=== PATIENT | female | born 1990 | race Caucasian/White ===

== ENCOUNTER 2021-08-25 11:50 | Inpatient (IN) | payer OTHER ==
[~2021-08-25] VITALS: Ht 162.6 cm; Wt 91.2 kg
--- NOTE | 2021-08-25 14:19 | NUR ---
covid swab done to both nares at 1310
--- NOTE | 2021-08-25 20:03 | PR ---
[facility] [address] [facility] [place], [place] [address] Signed Progress Notes IP Datetime Report Generated by CPN: 08/25/2021 20:03 PROGRESS NOTES: [id number] Impression: Normal Progression of Labor Plan: Continue Present Management; Anticipate Vaginal Delivery VITAL SIGNS: [id number] Vital Signs: Reviewed; Within Normal Limits EXAM: [id number] Dilatation: 8.0 Effacement: 80 Station: -2 MEMBRANES: [id number] Comments: Comfortable wlith Epidural. Making progress, but may need Piitocin, since progress seems to be slowing. Will recheck in about 1 hour. FETUS A: [id number] FHR Baseline: 150 Variability: Moderate 6-25bpm Accelerations: 15X15 Presentation: Vertex FETUS B: [id number] Signing Physician: Wilberto Gonzalez MD Copies: ~ *Electronically Signed* 08/25/212002 WILBERTO GONZALEZ MD PATIENT NAME: DIANA WISE PROGRESS NOTE DATE OF : 86 PHYSICIAN: WILBERTO GONZALEZ MD RPT #: [id number] REPORT IS CONFIDENTIAL AND NOT TO BE RELEASED WITHOUT AUTHORIZATION
--- NOTE | 2021-08-25 21:01 | PR ---
[facility] [address] [facility] [place], [place] [address] Signed Progress Notes IP Datetime Report Generated by CPN: 08/25/2021 21:01 PROGRESS NOTES: [id number] Impression: Normal Progression of Labor Other Impressions: Slow Progress Procedures: Intrauterine Pressure Catheter Plan: Augmentation VITAL SIGNS: [id number] Vital Signs: Reviewed; Within Normal Limits EXAM: [id number] Dilatation: 8.0 Effacement: 90 Station: -1 MEMBRANES: [id number] Membranes Status: Ruptured Comments: Slow progress, patient comfortable with Epidural. Will start Pitocin augmentation. FETUS A: [id number] FHR Baseline: 150 Variability: Moderate 6-25bpm Accelerations: 15X15 Presentation: Vertex FETUS B: [id number] Signing Physician: Wilberto Gonzalez MD Copies: ~ *Electronically Signed* 08/25/212100 WILBERTO GONZALEZ MD PATIENT NAME: DIANA WISE PROGRESS NOTE DATE OF : 86 PHYSICIAN: WILBERTO GONZALEZ MD RPT #: [id number] REPORT IS CONFIDENTIAL AND NOT TO BE RELEASED WITHOUT AUTHORIZATION
--- NOTE | 2021-08-25 22:35 | PR ---
[facility] [address] [facility] [place], [place] [address] Signed Progress Notes IP Datetime Report Generated by CPN: 08/25/2021 22:35 PROGRESS NOTES: [id number] Impression: Normal Progression of Labor Other Impressions: Slow Progress Procedures: Intrauterine Pressure Catheter Plan: Anticipate Vaginal Delivery VITAL SIGNS: [id number] Vital Signs: Reviewed; Within Normal Limits EXAM: [id number] Dilatation: 10.0 Effacement: 100 Station: 0 MEMBRANES: [id number] Membranes Status: Ruptured Comments: Comfortable with Epidural. Will have patient start pushing. FETUS A: [id number] FHR Baseline: 150 Variability: Moderate 6-25bpm Accelerations: 15X15 Presentation: Vertex FETUS B: [id number] Signing Physician: Wilberto Gonzalez MD Copies: ~ *Electronically Signed* 08/25/21 2234 WILBERTO GONZALEZ MD PATIENT NAME: DIANA WISE PROGRESS NOTE DATE OF : 86 PHYSICIAN: WILBERTO GONZALEZ MD RPT #: [id number] REPORT IS CONFIDENTIAL AND NOT TO BE RELEASED WITHOUT AUTHORIZATION
--- NOTE | 2021-08-26 10:51 | PR ---
[facility] [place] [facility] [address] [facility] [place] [address] Signed PP Progress Notes Datetime Report Generated by CPN: 08/26/2021 10:51 SUBJECTIVE: [id number] Pain: Within Normal Limits Nausea/Vomiting: Denies Vital Signs: [id number] Vital Signs: Reviewed; Within Normal Limits Notable Details: PP Hgb/Hct = 11.6/35.2 Abdomen/Uterus: Normal Lochia: Normal Extremities: Normal IMPRESSION/PLAN/PROCEDURES: [id number] Impression: Normal Progression Plan: Continue Present Management Procedures: None Progress Notes: Doing well without complaint. Signing Physician: Wilberto Gonzalez MD Copies: ~ *Electronically Signed* 08/26/21 1051 WILBERTO GONZALEZ MD PATIENT NAME: DIANA WISE PROGRESS NOTE DATE OF : [birth year] PHYSICIAN: WILBERTO GONZALEZ MD RPT #: [id number] REPORT IS CONFIDENTIAL AND NOT TO BE RELEASED WITHOUT AUTHORIZATION
--- NOTE | 2021-08-27 10:53 | PR ---
[facility] [address] [facility] [place] [address] Signed PP Progress Notes Datetime Report Generated by CPN: 08/27/2021 10:53 SUBJECTIVE: [id number] Pain: Within Normal Limits Nausea/Vomiting: Denies Vital Signs: [id number] Vital Signs: Reviewed; Within Normal Limits Notable Details: PP Hgb/Hct = 11.6/35.2 Abdomen/Uterus: Normal Lochia: Normal Extremities: Normal IMPRESSION/PLAN/PROCEDURES: [id number] Impression: Normal Progression Plan: Discharge Procedures: None Progress Notes: Doing well, without complaint, ready to go home. Signing Physician: Wilberto Gonzalez MD Copies: ~ *Electronically Signed* 08/27/21 1053 WILBERTO GONZALEZ MD PATIENT NAME: DIANA WISE PROGRESS NOTE DATE OF : [birth year] PHYSICIAN: WILBERTO GONZALEZ MD RPT #: [id number] REPORT IS CONFIDENTIAL AND NOT TO BE RELEASED WITHOUT AUTHORIZATION
== END 2021-08-27 11:06 | disposition home or self-care (01) | DRG 807 ==
LOC: FBC 11:50
PROVIDERS: ADMIT General Practice; ATTEND General Practice
PROC: 10E0XZZ Delivery of Products of Conception, External Approach (ICD-10-PCS; principal; 2021-08-25)
PROC: 0KQM0ZZ Repair Perineum Muscle, Open Approach (ICD-10-PCS; 2021-08-25)
PROC: 10907ZC Drainage of Amniotic Fluid, Therapeutic from Products of Conception, Via Natural or Artificial Opening (ICD-10-PCS; 2021-08-25)
PROC: 3E0234Z Introduction of Serum, Toxoid and Vaccine into Muscle, Percutaneous Approach (ICD-10-PCS; 2021-08-25)
PROC: 3E0R3BZ Introduction of Anesthetic Agent into Spinal Canal, Percutaneous Approach (ICD-10-PCS; 2021-08-25)
PROC: 00HU33Z Insertion of Infusion Device into Spinal Canal, Percutaneous Approach (ICD-10-PCS; 2021-08-25)
PROC: 3E033VJ Introduction of Other Hormone into Peripheral Vein, Percutaneous Approach (ICD-10-PCS; 2021-08-25)
DX: O99.52 Diseases of the respiratory system complicating childbirth (principal); Z37.0 Single live birth; O70.1 Second degree perineal laceration during delivery; Z3A.39 39 weeks gestation of pregnancy; Z20.822 Contact with and (suspected) exposure to COVID-19; O26.893 Other specified pregnancy related conditions, third trimester; Z67.21 Type B blood, Rh negative; Z88.2 Allergy status to sulfonamides; Z91.030 Bee allergy status; Z88.8 Allergy status to other drugs, medicaments and biological substances; J45.20 Mild intermittent asthma, uncomplicated; Z98.890 Other specified postprocedural states
CPT/HCPCS: 01960; 83030; 85027; 86850; 86900; 86901; A9270; C9803; J2590; J2790; J2795; J3010; U0003

== ENCOUNTER 2022-11-01 07:55 | Day surgery (SDC) | payer OTHER ==
[~2022-11-01] VITALS: Ht 152.4 cm; Wt 78.2 kg
--- NOTE | ~2022-11-01 | OR ---
[facility] [address] [place], [place] [address] Draft DATE OF OPERATION: 11/01/2022 SURGEON: Stefani Wheat DO PREOPERATIVE DIAGNOSIS: Intra-abdominal IUD. POSTOPERATIVE DIAGNOSIS: Intra-abdominal IUD. PROCEDURE PERFORMED: Laparoscopic retrieval of malpositioned/intra-abdominal IUD. WATER PURIFIER: Nicci Spann DO ANESTHESIA: General. ESTIMATED BLOOD LOSS: 5 mL. SPECIMEN: None. FINDINGS: Normal external genitalia with normal vagina and cervix. On laparoscopy, normal pelvis with IUD resting on top of the left omentum removed without difficulty. A small dimple at the apex of the uterus consistent with perforation site. Otherwise, normal pelvis with normal uterus, tubes, and ovaries. The patient does have a history of endometriosis in the past, but careful evaluation of all peritoneal surfaces of the pelvis demonstrates no evidence of residual endometriosis or other pelvic pathology. COMPLICATIONS: None. INDICATIONS: Ms. Xiong is a very pleasant 32-year-old G2, P2 female, who presented for IUD insertion in August 2022. At six week IUD check, IUD strings were noted to be missing. Ultrasound demonstrated IUD was not seen in the uterine cavity and pelvic PATIENT NAME: DIANA XIONG OPERATIVE REPORT DATE OF : 86 REPORT #: [id number] PHYSICIAN: STEFANI WHEAT (MADDI) PCP: PAUL SAAB MD REPORT IS CONFIDENTIAL AND NOT TO BE RELEASED WITHOUT AUTHORIZATION [facility] [address] [place], [place] [address] Draft x-ray demonstrates intra-abdominal Mirena IUD pelvic. The patient was consented for laparoscopic retrieval of intra-abdominal IUD. Risks, benefits, and alternatives were discussed in detail with the patient. The patient understands and wished to proceed with the procedure. TECHNIQUE: The patient was taken to the operating room where a time-out was performed to confirm correct patient and correct procedure. General anesthesia was adequately established. The patient was prepped and draped in the dorsal lithotomy position with her feet in Yellofin stirrups. ICPs were on and running and no preoperative antibiotics or heparin were indicated. A weighted speculum was placed in the vagina and the anterior lip of the cervix was grasped with Allis clamp. The cervix was gently dilated using Hegar dilators and [place] uterine manipulator was placed. A Cline catheter was inserted. Attention was turned to the abdomen. The base of the umbilicus was infiltrated with 0.25% Marcaine with epinephrine and a 5 mm stab incision was made using an 11 blade. A 5 mm port was placed under direct visualization without complication. Pneumoperitoneum was easily established without complication and survey of the abdomen and pelvis was performed. The IUD was noted to be resting on top of the left omentum consistent with findings and x-ray. A 5 mm scar was noted in the midline just above the pubic symphysis. This area was infiltrated with 0.25% Marcaine with epinephrine. An incision was made through the prior scar and a 5 mm assist port was placed without difficulty under direct visualization. The IUD was grasped with [place] graspers and removed without difficulty. The remainder of the abdomen and pelvis was examined. Close inspection of the peritoneal surfaces of the pelvis demonstrated no evidence of residual endometriosis as the patient does have a history of endometriosis in the past. A small dimple on the left apical portion of the IUD was noted consistent with perforation site. Pneumoperitoneum was reduced. Trocars were removed and trocar sites were repaired using 4-0 Vicryl with excellent cosmesis and hemostasis. The Allis clamp and [place] uterine manipulator as well as the Cline catheter were removed. The patient was then taken to PACU in good and stable condition. Sponge, needle, and instrument counts were correct x2 at the end of the procedure. Dr. Spann was present and participated in all portions of the procedure. Stefani Wheat DO JDW/MODL /[id number] PATIENT NAME: DIANA XIONG OPERATIVE REPORT DATE OF : 86 REPORT #: [id number] PHYSICIAN: STEFANI WHEAT DO (JD) PCP: PAUL SAAB MD REPORT IS CONFIDENTIAL AND NOT TO BE RELEASED WITHOUT AUTHORIZATION [facility] [address] [place] [address] [place] [address] Draft Copies: ~ PATIENT NAME: DIANA XIONG OPERATIVE REPORT DATE OF : [birth year] REPORT #: [id number] PHYSICIAN: STEFANI WHEAT (MADDI) PCP: PAUL SAAB MD REPORT IS CONFIDENTIAL AND NOT TO BE RELEASED WITHOUT AUTHORIZATION
[~2022-11-01 07:55] MED LIST: ALL DAY ALLERGY10 MG PO; PROVENTIL HFA6.7 GM INH; PULMICORT FLEX90 MCG INH; SUDAFED 12 HOU120 MG PO
--- NOTE | 2022-11-01 10:00 | NUR ---
LE 1000 CHECKED ON PATIENT UPDATED. PATIENT HAS NO QUESTIONS OR FUTHER NEEDS.
--- NOTE | 2022-11-01 11:00 | NUR ---
LE 1100 PATIENT UPDATED ON WAIT. GIVEN WARM BLANKET. NO QUESTIONS OR FUTHER NEEDS AT THIS TIME. AT BEDSIDE.
--- NOTE | 2022-11-01 11:43 | NUR ---
CHECKED ON PATIENT AND UPDATE GIVEN. NO OTHER NEEDS AT THIS TIME.
--- NOTE | 2022-11-01 13:29 | NUR ---
11/01/22 1329 Sherrill Krause 1327- PT ARRIVES TO PACU NONAROUSABLE TO STIMULI WITH AN OPA IN PLACE. RESP EVEN AND UNLABORED. OXYGEN SAT HIGH 90'S TO 100% ON 8L VIA MASK.
--- NOTE | 2022-11-01 14:17 | NUR ---
5266-PATIENT BACK TO ROOM FROM PACU ON RA. RECEIVED REPORT FROM [facility]. PATIENT IS AWAKE. RESP EVEN AND UNLABORED. RATES PAIN 4/10 AND THIS IS TOLERABLE FOR HER. DENIES NAUSEA. 2 LAP SITES WITH A SMALL AMOUNT OF DRAINAGE. PATIENT EATING JELLO AND DRINKING WATER. CALL LIGHT WITHIN REACH. AT BEDSIDE. NO OTHER NEEDS AT THIS TIME.
--- NOTE | 2022-11-01 14:34 | NUR ---
LE 1423 PATIENT COMPLAINING OF 5/10 PAIN. PAIN MEDICINE GIVEN PER EMAR.
--- NOTE | 2022-11-01 15:02 | NUR ---
LE 1500 PATIENT ABLE TO AMBULATE TO THE RESTROOM. PATIENT TOLERATED AMBULATION WELL. VOIDED. CLEAR AND YELLOW URINE. CALL LIGHT WITHIN REACH NO FUTHER NEEDS. NO QUESTIONS AT THIS TIME.
--- NOTE | 2022-11-01 15:26 | NUR ---
1520 PATIENT HAS MET DISCHARGE CRITERIA. PATIENT PAIN IS A 2/10 AND TOLERABLE. PATIENT DENIES BEING NAUSEATED. SURGICAL SITE IS CLEAN, DRY AND INTACT. PATIENT IV D/C'D WNL. PATIENT GIVEN DISCHARGE INSTRUCTIONS AND UNDERSTOOD. NO QUESTIONS AT THIS TIME. PATIENT WAS WHEELED OUT OF FACILTIY TO PRIVATE AUTO. NO FUTHER NEEDS.
== END 2022-11-01 15:20 | disposition home or self-care (01) ==
LOC: DS 07:55
PROVIDERS: ATTEND Obstetrics & Gynecology
PROC: 0UPD4HZ Removal of Contraceptive Device from Uterus and Cervix, Percutaneous Endoscopic Approach (ICD-10-PCS; principal; 2022-11-01 10:30)
DX: T83.32XA Displacement of intrauterine contraceptive device, initial encounter (principal); Y82.8 Other medical devices associated with adverse incidents; Z88.2 Allergy status to sulfonamides; Z91.030 Bee allergy status
CPT/HCPCS: J1100; J1170; J1885; J2250; J2405; J2704; J3010; J7121